=== PATIENT | female | born 1950 ===

== ENCOUNTER 2017-11-28 09:13 | Emergency (ER) | payer BC, OTHER ==
[2017-11-28 09:18] VITALS: BMI 23.6
[2017-11-28 09:20] VITALS: RESP 18; O2SAT 98
[2017-11-28] MEDS ORDERED: Albuterol 0.083% Inhal Sol (2.5 mg/3 mL) UD IH STA (09:37)
[2017-11-28] MEDS ORDERED: Albuterol-Ipratrop 3 mg / 0.5 (3 ml) UD ONE (09:45)
--- NOTE | 2017-11-28 09:47 | RAD ---
HISTORY: Cough COMPARISON: No prior. TECHNIQUE: Chest PA and lateral FINDINGS: LUNGS: No active pulmonary disease. PLEURA: No significant pleural effusion identified. No pneumothorax apparent. CARDIOVASCULAR: Normal. OSSEOUS STRUCTURES: No significant abnormalities. VISUALIZED UPPER ABDOMEN: Normal. OTHER FINDINGS: None. IMPRESSION: No active disease.
--- NOTE | 2017-11-28 10:21 | C.PDOC ---
History Of Present Illness 67 year old female presents to the ED for evaluation of cold symptoms which began 5 days ago. Symptoms are associated with nasal congestion and dry cough. Patient admits she took some medication given by her PMD for 2 days without any improvement. Otherwise, Otherwise, pt denies high fever, chills, headache, dizziness, neck pain, drooling, dysphagia, dyspnea, SOB, wheezing, abd. pain, V/ D, back pain, UTI sx. Time Seen by Provider: 11/28/17 09:31 Chief Complaint (Nursing): Cough, Cold, Congestion History Per: Patient History/Exam Limitations: no limitations Onset/Duration Of Symptoms: Days (5) Current Symptoms Are (Timing): Still Present Additional History Per: Patient Past Medical History Reviewed: Historical Data, Nursing Documentation, Vital Signs Vital Signs: Last Vital Signs Temp 98.6 F 11/28/17 10:41 Pulse 84 11/28/17 10:41 Resp 18 11/28/17 10:41 BP 138/82 11/28/17 10:41 Pulse Ox 98 11/28/17 10:41 - Medical History PMH: No Chronic Diseases Surgical History: No Surg Hx Family History: States: Unknown Family Hx - Social History Hx Alcohol Use: No Hx Substance Use: No Review Of Systems Constitutional: Negative for: Fever, Chills ENT: Positive for: Nose Congestion. Negative for: Ear Pain, Ear Discharge, Nose Discharge, Throat Pain, Throat Swelling Cardiovascular: Negative for: Chest Pain, Palpitations Respiratory: Positive for: Cough. Negative for: Shortness of Breath, Sputum, Wheezing Gastrointestinal: Negative for: Nausea, Vomiting, Abdominal Pain Genitourinary: Negative for: Dysuria Musculoskeletal: Negative for: Neck Pain Neurological: Negative for: Altered Mental Status, Headache, Dizziness Physical Exam - Physical Exam Appears: Non-toxic, No Acute Distress Skin: Normal Color, Warm, Dry, No Rash Head: Normacephalic Eye(s): bilateral: PERRL Ear(s): Bilateral: Normal Nose: Normal, No Discharge Oral Mucosa: Moist, No Drooling Tongue: Normal Appearing Lips: Normal Appearing Throat: Normal, No Erythema, No Exudate Neck: Trachea Midline, Supple, No Other (meningeal signs ) Cardiovascular: Rhythm Regular, No Murmur, No JVD Respiratory: No Decreased Breath Sounds, No Accessory Muscle Use, No Stridor, No Wheezing Gastrointestinal/Abdominal: Soft, No Tenderness, No Distention, No Guarding Back: No CVA Tenderness Extremity: Normal ROM, No Deformity, No Swelling Neurological/Psych: Oriented x3, Normal Speech ED Course And Treatment ECG: Interpreted By Me, Viewed By Me ECG Rhythm: Sinus Rhythm Interpretation Of ECG: SR@73/min, NAD, T wave inversion in III, AVF, no acute ST -T changes. O2 Sat by Pulse Oximetry: 98 (on RA) Pulse Ox Interpretation: Normal - Radiology CXR: Interpreted by Me, Read By Radiologist CXR Interpretation: Yes: No Acute Disease Progress Note: On re-evaluation, pt is afebrile, hemodynamicaly stable. Non- toxic. Tolerate PO well in ED. PulseOx 99% RA. Neck: Supple, (-) meningeal sign. ENT: exam c/w mild pharyngitis. Lungs: CTA B/L, BS equal B/L. CVS: (+) S1S2, reg. Abd: benign, (-) guarding, (-) rebound. back: (-) CVA tenderness. CXR review, normal study. Pt has clinical findings c/w bronchitis. Pt advised. ref. to f/u with PMD in 2-3 days for re-eval. return if any new changes. Disposition Counseled Patient/Family Regarding: Studies Performed, Diagnosis, Need For Followup, Rx Given - Disposition Referrals: [facility] [Outside] Disposition: HOME/ ROUTINE Disposition Time: 10:22 Condition: STABLE Additional Instructions: Encourage fluids Change antibiotic to new one Continue cough syrup as initiated Take medication as prescribed Follow up with PMD in 1-2 days for re-evaluation. return to ED if any worsening or new changes. Prescriptions: Albuterol HFA [Ventolin HFA 90 mcg/actuation (8 g)] 1 puff IH Q6 #1 inhaler Azithromycin [Zithromax] 250 mg PO DAILY #4 tab Prednisone [Deltasone] 40 mg PO DAILY #6 tablet Instructions: Acute Bronchitis Forms: [facility] (Maltese), Work Excuse - Clinical Impression Clinical Impression: Bronchitis - PA / TAPPET ADJUSTER / Resident Statement MD/DO has reviewed & agrees with the documentation as recorded. - Scribe Statement The provider has reviewed the documentation as recorded by the Scribe (Rachel Chew) All medical record entries made by the Scribe were at my direction and personally dictated by me. I have reviewed the chart and agree that the record accurately reflects my personal performance of the history, physical exam, medical decision making, and the department course for this patient. I have also personally directed, reviewed, and agree with the discharge instructions and disposition.
[2017-11-28] MEDS ORDERED: Albuterol 0.083% Inhal Sol (2.5 mg/3 mL) UD ONE (10:31)
[2017-11-28 10:41] VITALS: BP 138/82; PULSE 84; TEMP 98.6
--- NOTE | 2017-11-29 10:08 | CARD ---
APPROVED REPORT EKG Measurement Heart [id number] <Conclusion> Normal sinus rhythm Minimal voltage criteria for LVH, may be normal variant Borderline ECG
== END 2017-11-28 10:47 | disposition home or self-care (01) ==
LOC: C.ER 09:13
DX: J40 Bronchitis, not specified as acute or chronic (principal)

== ENCOUNTER 2018-10-13 08:11 | Emergency (ER) | payer BC ==
[2018-10-13 08:11] VITALS: BMI 23.6
[2018-10-13 08:19] VITALS: BP 188/89; PULSE 77; TEMP 97.9; O2SAT 100
--- NOTE | 2018-10-13 09:13 | C.PDOC ---
History Of Present Illness 68 y/o female presents to the ER complaining of right sided chest pain s/p fall 3 days ago. Patient states that she tripped and fell striking the ground. Patient reports that she has pain with deep inspiration and palpation. She notes that has bruising to the area. She has been taking Advil and applying ice with some relief.Denies having SOB, fever, chills, nausea, and vomiting. Time Seen by Provider: 10/13/18 08:31 Chief Complaint (Nursing): Trauma Past Medical History Vital Signs: Last Vital Signs Temp 97.9 F 10/13/18 08:15 Pulse 77 10/13/18 08:15 Resp 20 10/13/18 08:15 BP 188/89 H 10/13/18 08:15 Pulse Ox 100 10/13/18 08:15 Family History: States: Unknown Family Hx - Social History Hx Alcohol Use: No Hx Substance Use: No ED Course And Treatment O2 Sat by Pulse Oximetry: 100 Disposition - Disposition Referrals: Yina Berger MD [Medical Doctor] - Disposition Time: 09:13 Additional Instructions: Your Xray was normal, no fracture of ribs or other abnormality Take pain medicine as needed 1-2 times a day Follow up with your doctor Prescriptions: Naproxen [Naprosyn] 1 tab PO Q12 #20 tab Instructions: Bruised Rib (DC) Forms: [facility] (Moldovan) - POA Present On Arrival: None - Clinical Impression Clinical Impression: Chest wall contusion
--- NOTE | 2018-10-13 09:27 | C.PDOC ---
History Of Present Illness 68 y/o female presents to the ER complaining of right sided chest pain s/p fall 3 days ago. Patient states that she tripped and fell striking the ground. Patient reports that she has pain with deep inspiration and palpation. She notes that has bruising to the area. She has been taking Advil and applying ice with some relief.Denies having SOB, fever, chills, nausea, and vomiting. - HPI Time Seen by Provider: 10/13/18 08:31 Chief Complaint (Nursing): Trauma History Per: Patient History/Exam Limitations: no limitations Onset/Duration Of Symptoms: Days Severity: Moderate Past Medical History Reviewed: Historical Data, Nursing Documentation, Vital Signs Vital Signs: Last Vital Signs Temp 97.9 F 10/13/18 08:15 Pulse 77 10/13/18 08:15 Resp 20 10/13/18 08:15 BP 188/89 H 10/13/18 08:15 Pulse Ox 100 10/13/18 08:15 - Medical History PMH: No Chronic Diseases Other Surgeries: Hx of surgeries Family History: States: No Known Family Hx - Social History Hx Alcohol Use: No Hx Substance Use: No Review Of Systems Except As Marked, All Systems Reviewed And Found Negative. Constitutional: Negative for: Fever, Chills Cardiovascular: Positive for: Chest Pain Respiratory: Negative for: Shortness of Breath Gastrointestinal: Negative for: Nausea, Vomiting Physical Exam - Physical Exam Appears: Non-toxic, No Acute Distress Skin: Normal Color, Warm, Dry Head: Atraumatic, Normacephalic Eye(s): bilateral: Normal Inspection Nose: Normal Oral Mucosa: Moist Neck: Supple Chest: Symmetrical, Other (round ecchymotic lesion to right upper chest wall, tender on palpation, no bony deformity) Cardiovascular: Rhythm Regular Respiratory: Normal Breath Sounds, No Rales, No Rhonchi, No Wheezing Gastrointestinal/Abdominal: Normal Exam, Soft, No Tenderness, No Guarding, No Rebound Extremity: Normal ROM (bilateral shoulder) Neurological/Psych: Oriented x3, Normal Speech ED Course And Treatment O2 Sat by Pulse Oximetry: 100 (RA) Pulse Ox Interpretation: Normal Medical Decision Making Medical Decision Making: Impression: Chest wall Pain Plan: * Motrin PO * X-Ray- Ribs and Chest RT Xray was unremarkable, no rib fracture or pneumothorax Patient remained well in no distress. Patient to be discharged with Rx. Disposition - Disposition Referrals: Purisma,Clementino O, MD [Medical Doctor] - Disposition: HOME/ ROUTINE Disposition Time: 09:30 Condition: GOOD Additional Instructions: Your Xray was normal, no fracture of ribs or other abnormality Take pain medicine as needed 1-2 times a day Follow up with your doctor Prescriptions: Naproxen [Naprosyn] 1 tab PO Q12 #20 tab Instructions: Bruised Rib (DC) Forms: [employer] ([place]an) - Clinical Impression Clinical Impression: Chest wall contusion - PA / CLINICAL TRIAL MANAGER / Resident Statement MD/DO has reviewed & agrees with the documentation as recorded. - Scribe Statement The provider has reviewed the documentation as recorded by the Florence Locke Provider Attestation All medical record entries made by the Panchoibe were at my direction and personally dictated by me. I have reviewed the chart and agree that the record accurately reflects my personal performance of the history, physical exam, medical decision making, and the department course for this patient. I have also personally directed, reviewed, and agree with the discharge instructions and disposition.
[2018-10-13 09:37] VITALS: RESP 18
--- NOTE | 2018-10-13 13:31 | RAD ---
Date of service: 10/13/2018 PROCEDURE: Radiographs of the Chest and Right Ribs. HISTORY: pain s.p fall rt upper chest wall bruise COMPARISON: Chest x-ray performed 11/28/17 TECHNIQUE: Frontal radiograph of the chest and multiple oblique radiographs of the right ribs were obtained. FINDINGS: RIGHT RIBS: No acute displaced fracture identified. LUNGS: No focal consolidation. Please note that chest x-ray has limited sensitivity for the detection of pulmonary masses. PLEURA: No significant pleural effusion. No definite pneumothorax. CARDIOVASCULAR: Heart size appears within normal limits. Faint atherosclerotic calcification of the aorta. OTHER FINDINGS: Degenerative changes of the spine. Soft tissue swelling noted right suprascapular region; correlate clinically for possibility of hematoma. IMPRESSION: Soft tissue swelling noted right suprascapular region; correlate clinically for possibility of hematoma. No appreciable displaced right rib fracture. Study marked for PA review
== END 2018-10-13 09:31 | disposition home or self-care (01) ==
LOC: C.ER 08:11
DX: S20.211A Contusion of right front wall of thorax, initial encounter (principal); W01.0XXA Fall on same level from slipping, tripping and stumbling without subsequent striking against object, initial encounter